=== PATIENT | female | born 1965 | race Hispanic/Latino ===

== ENCOUNTER → 2017-11-01 | Outpatient (CLI) | payer BC | END | disposition home or self-care (01) | LOC: RAH 10:40 | PROVIDERS: ATTEND Physical Medicine & Rehabilitation | DX: M51.36 Other intervertebral disc degeneration, lumbar region (principal); M47.896 Other spondylosis, lumbar region; M48.061 Spinal stenosis, lumbar region without neurogenic claudication | CPT/HCPCS: 72148 ==

== ENCOUNTER → 2020-03-18 | Outpatient (CLI) | payer OTHER | END | disposition home or self-care (01) | LOC: OIH 17:37 | PROVIDERS: ATTEND Internal Medicine Endocrinology, Diabetes & Metabolism | DX: Z13.6 Encounter for screening for cardiovascular disorders (principal) | CPT/HCPCS: 75571 ==